=== PATIENT | female | born 1985 | race Caucasian/White ===

== ENCOUNTER 2016-10-21 15:02 | Emergency (ER) | payer OTHER ==
[2016-10-21] MEDS ORDERED: Dexamethasone 4 MG TAB ONE (16:01)
[2016-10-21] MEDS ORDERED: Benzonatate 100 MG CAP ONE ×2 (16:01→16:02)
[2016-10-21] MEDS ORDERED: Ibuprofen 800 MG TAB ONE (16:01)
== END 2016-10-21 16:36 | disposition home or self-care (01) ==
LOC: MADERS 15:02
DX: J40 Bronchitis, not specified as acute or chronic (principal); H66.91 Otitis media, unspecified, right ear; I10 Essential (primary) hypertension; F32.9 Major depressive disorder, single episode, unspecified; Z79.899 Other long term (current) drug therapy
CPT/HCPCS: 99283; J8540

== ENCOUNTER 2016-12-03 10:05 | Emergency (ER) | payer OTHER ==
[2016-12-03] MEDS ORDERED: Naproxen 500 MG TAB ONE (11:06)
[2016-12-03] MEDS ORDERED: AMOXicillin 250 MG CAP ONE (11:06)
[2016-12-03] MEDS ORDERED: Benzonatate 100 MG CAP ONE (11:06)
== END 2016-12-03 11:10 | disposition home or self-care (01) ==
LOC: MADERS 10:05
DX: J03.90 Acute tonsillitis, unspecified (principal); I10 Essential (primary) hypertension; F32.9 Major depressive disorder, single episode, unspecified; Z79.899 Other long term (current) drug therapy
CPT/HCPCS: 99283

== ENCOUNTER 2016-12-06 08:38 | Emergency (ER) | payer OTHER ==
[2016-12-06] MEDS ORDERED: Ibuprofen 400 MG TAB ONE (09:14)
--- NOTE | 2016-12-06 09:30 | RAD ---
PA AND LATERAL VIEWS OF CHEST: Date: 12/06/16 HISTORY: Cough. FINDINGS: Comparison made with exam of 06/08/16. The heart size is normal. No confluent areas of consolidation, pneumothorax, or pleural effusions ar e seen. IMPRESSION: No radiographic evidence of acute cardiopulmonary process. POS: [facility]
== END 2016-12-06 10:21 | disposition home or self-care (01) ==
LOC: MADERS 08:38
DX: J11.1 Influenza due to unidentified influenza virus with other respiratory manifestations (principal); I10 Essential (primary) hypertension; F32.9 Major depressive disorder, single episode, unspecified
CPT/HCPCS: 71020; J7620

== ENCOUNTER 2016-12-17 09:12 | Emergency (ER) | payer OTHER ==
[2016-12-17] MEDS ORDERED: Ciprofloxacin 500 MG TAB ONE (09:49)
[2016-12-17] MEDS ORDERED: Dexamethasone 4 MG TAB ONE (09:49)
== END 2016-12-17 10:20 | disposition home or self-care (01) ==
LOC: MADERS 09:12
DX: J20.9 Acute bronchitis, unspecified (principal); I10 Essential (primary) hypertension; F32.9 Major depressive disorder, single episode, unspecified; Z79.899 Other long term (current) drug therapy
CPT/HCPCS: 93005; J8540

== ENCOUNTER 2017-02-01 08:43 | Emergency (ER) | payer OTHER ==
[2017-02-01] MEDS ORDERED: Ibuprofen 600 MG TAB ONE (09:20)
[2017-02-01 09:24] LABS: Pregnancy Test - Urine (BHCG) Negative (Negative); Pregu Control Background? CLEAR/WHITE (CLR/WHITE); Pregu Control Bar Appear? YES (CONTROL BAR); Specific Gravity 1.027 (1.002-1.036)
[2017-02-01 09:25] LABS: Clarity Hazy (Clear); Glucose, Urine (Dipstick) Negative (Negative); Leukocyte Small (Negative); Nitrite Negative (Negative); Protein, Urine (Dipstick) Trace mg/dL (Neg-Trace); pH, Urine 5.5 (5.0-9.0)
[2017-02-01 09:26] LABS: Bilirubin Small (Negative); Blood, Urine Trace (Negative); Icto Negative (Negative)
[2017-02-01 09:28] LABS: Bacteria/HPF 1+ HPF (None Seen); RBC/HPF 0-3 HPF (0-3); Specific Gravity, Urine 1.027 (1.005-1.030)
[2017-02-01] MEDS ORDERED: Ciprofloxacin 500 MG TAB ONE (09:50)
== END 2017-02-01 09:50 | disposition home or self-care (01) ==
LOC: MADERS 08:43
DX: N39.0 Urinary tract infection, site not specified (principal); I10 Essential (primary) hypertension; F32.9 Major depressive disorder, single episode, unspecified; Z79.899 Other long term (current) drug therapy
CPT/HCPCS: 81003; 81015; 81025; 99284

== ENCOUNTER 2017-03-21 18:36 | Emergency (ER) | payer OTHER | END 2017-03-21 19:04 | disposition home or self-care (01) | LOC: MADERS 18:36 | DX: J20.9 Acute bronchitis, unspecified (principal); I10 Essential (primary) hypertension; F32.9 Major depressive disorder, single episode, unspecified; Z79.899 Other long term (current) drug therapy | CPT/HCPCS: 99283 ==

== ENCOUNTER 2017-06-08 15:18 | Emergency (ER) | payer MEDICAID, OTHER | END 2017-06-08 15:45 | disposition home or self-care (01) | LOC: MADERS 15:18 | DX: J20.9 Acute bronchitis, unspecified (principal); I10 Essential (primary) hypertension; G43.909 Migraine, unspecified, not intractable, without status migrainosus; F32.9 Major depressive disorder, single episode, unspecified; Z79.899 Other long term (current) drug therapy | CPT/HCPCS: 99283 ==

== ENCOUNTER 2017-09-17 16:46 | Emergency (ER) | payer OTHER ==
[2017-09-17] MEDS ORDERED: Benzonatate 100 MG CAP ONE (17:36)
[2017-09-17] MEDS ORDERED: AMOXicillin 250 MG CAP ONE (17:36)
[2017-09-17] MEDS ORDERED: Naproxen 500 MG TAB ONE (17:36)
== END 2017-09-17 17:40 | disposition home or self-care (01) ==
LOC: MADERS 16:46
DX: J20.9 Acute bronchitis, unspecified (principal); I10 Essential (primary) hypertension; F32.9 Major depressive disorder, single episode, unspecified; Z79.899 Other long term (current) drug therapy
CPT/HCPCS: 99283

== ENCOUNTER 2018-04-14 16:20 | Emergency (ER) | payer OTHER ==
--- NOTE | 2018-04-14 17:11 | RAD ---
CHEST TWO VIEWS: 04/14/18 HISTORY: Cough. COMPARISON: 12/06/16. FINDINGS: The cardiac silhouette is unremarkable. Pulmonary vasculature is slightly engorged and accentuated by shallow inspiration. Mediastinum is midline. No confluent air space consolidation, pneumothorax, or pleural fluid are apparent. IMPRESSION: Pulmonary vascular congestion. POS: [facility]
== END 2018-04-14 17:12 | disposition home or self-care (01) ==
LOC: MADERS 16:20
DX: J20.8 Acute bronchitis due to other specified organisms (principal); K21.9 Gastro-esophageal reflux disease without esophagitis; I10 Essential (primary) hypertension; G43.909 Migraine, unspecified, not intractable, without status migrainosus; F31.9 Bipolar disorder, unspecified; F41.9 Anxiety disorder, unspecified; Z79.899 Other long term (current) drug therapy
CPT/HCPCS: 71046; 93005

== ENCOUNTER 2018-07-31 15:34 | Emergency (ER) | payer OTHER ==
--- NOTE | 2018-07-31 16:56 | RAD ---
CHEST TWO VIEWS: HISTORY: Cough. COMPARISON: 04/14/2018 FINDINGS: Two views of the chest show normal sized cardiomediastinal silhouette. There is no evidence of consol idation, mass, or pleural effusion. The bones are unremarkable. IMPRESSION: No evidence of acute cardiopulmonary disease. POS: [facility]
[2018-07-31] MEDS ORDERED: predniSONE 20 MG TAB ONE (17:50)
== END 2018-07-31 18:15 | disposition home or self-care (01) ==
LOC: MADERS 15:34
DX: J06.9 Acute upper respiratory infection, unspecified (principal); F41.9 Anxiety disorder, unspecified; F32.9 Major depressive disorder, single episode, unspecified; K21.9 Gastro-esophageal reflux disease without esophagitis; I10 Essential (primary) hypertension; G43.909 Migraine, unspecified, not intractable, without status migrainosus; Z79.899 Other long term (current) drug therapy
CPT/HCPCS: 71046; 87804; J7506

== ENCOUNTER 2019-02-14 16:34 | Emergency (ER) | payer OTHER ==
--- NOTE | 2019-02-14 17:26 | RAD ---
PA AND LATERAL VIEWS CHEST: Date: 02/14/19 HISTORY: Cough, chest pain. FINDINGS: Comparison made with exam of 07/31/18. The heart size is normal. There is a mild infiltrate in the right middle lobe. No pneumothoraces or p leural effusions are seen. IMPRESSION: Findings are suspicious for pneumonia. POS: [facility]
[2019-02-14] MEDS ORDERED: Azithromycin 250 MG TAB ONE (18:14)
== END 2019-02-14 18:24 | disposition home or self-care (01) ==
LOC: MADERS 16:34
DX: J18.9 Pneumonia, unspecified organism (principal); J20.9 Acute bronchitis, unspecified; I10 Essential (primary) hypertension; G43.909 Migraine, unspecified, not intractable, without status migrainosus; F41.9 Anxiety disorder, unspecified; K21.9 Gastro-esophageal reflux disease without esophagitis; F31.9 Bipolar disorder, unspecified; Z79.899 Other long term (current) drug therapy
CPT/HCPCS: 71046; 93005

== ENCOUNTER 2019-02-18 08:26 | Emergency (ER) | payer OTHER ==
--- NOTE | 2019-02-18 09:31 | RAD ---
2 views of the chest: 02/18/2019 COMPARISON: 02/14/2019 HISTORY: Cough FINDINGS: No pneumothorax or pleural fluid. No focal consolidation or alveolar edema. Heart and media stinal contours are grossly unremarkable. Inspiration is shallow. IMPRESSION: No acute findings.
[2019-02-18 09:53] LABS: #Eosinphils 0.2 thou/uL (0.0-0.7); #Lymphocytes 1.4 thou/uL (1.20-3.40); #Monocytes 0.6 thou/uL (0.11-0.59); #Neutrophils 5.6 thou/uL (1.40-6.50); %Basophils 0.4 % (0.0-1.0); %Lymphocytes 18.1 % (21.0-51.0); %Monocytes 7.5 % (0.0-10.0); %Neutrophils 70.9 % (42.0-75.0); Hemoglobin 13.9 g/dL (12.0-16.0); Mean Corpuscular HGB CONC 31.3 g/dL (32.0-36.0); Mean Corpuscular Hemoglobin 27.8 pg (27.0-31.0); Mean Corpuscular Volume 88.8 fL (78.0-98.0); Mean Platelet Volume 6.9 fL (7.4-10.4); Platelet Count 291 thou/uL (130-400); Red Blood Cell (RBC) Count 5.01 mill/uL (4.20-5.40); White Blood Cell (WBC) Count 7.9 thou/uL (4.8-10.8)
[2019-02-18 10:17] LABS: ALT (SGPT) 16 U/L (8-55); AST (SGOT) 14 U/L (5-34); Albumin 4.1 g/dL (3.5-5.0); Alkaline Phosphatase 79 U/L (40-150); Anion Gap 13 mmol/L (10-20); BUN (Urea Nitrogen) 18 mg/dL (7.0-18.7); Bilirubin, Total 0.4 mg/dL (0.2-1.2); Calc. Creatinine Clearance 0 mL/min (70-130); Calcium 8.8 mg/dL (7.8-10.44); Carbon Dioxide 21 mmol/L (22-29); Chloride 111 mmol/L (98-107); Estimated GFR-MDRD Greater than 90; Globulin 3.3 g/dL (2.4-3.5); Glucose 100 mg/dL (70-105); Potassium 3.9 mmol/L (3.5-5.1); Protein, Total 7.4 g/dL (6.0-8.3); Sodium 141 mmol/L (136-145)
== END 2019-02-18 10:41 | disposition home or self-care (01) ==
LOC: MADERS 08:26
DX: R09.1 Pleurisy (principal); I10 Essential (primary) hypertension; G43.909 Migraine, unspecified, not intractable, without status migrainosus; K21.9 Gastro-esophageal reflux disease without esophagitis; F41.9 Anxiety disorder, unspecified; F31.9 Bipolar disorder, unspecified; Z79.899 Other long term (current) drug therapy
CPT/HCPCS: 71046; 80053; 83605; 85025

== ENCOUNTER 2019-03-13 14:54 | Emergency (ER) | payer OTHER ==
--- NOTE | 2019-03-13 16:38 | RAD ---
2 VIEW CHEST: Date: 03/13/19 INDICATION: Cough. COMPARISON: 02/18/19. FINDINGS: Lungs appear well aerated and clear. No infiltrate or effusion identified. Heart and mediastinum unre markable. No evidence of interval change. IMPRESSION: No acute process identified. POS: [facility]
== END 2019-03-13 16:00 | disposition home or self-care (01) ==
LOC: MADERS 14:54
DX: J20.8 Acute bronchitis due to other specified organisms (principal); K21.9 Gastro-esophageal reflux disease without esophagitis; F41.9 Anxiety disorder, unspecified; F31.9 Bipolar disorder, unspecified; Z79.899 Other long term (current) drug therapy
CPT/HCPCS: 71046

== ENCOUNTER 2019-04-15 18:38 | Emergency (ER) | payer OTHER ==
--- NOTE | 2019-04-15 19:37 | RAD ---
RADIOGRAPH CHEST 1 VIEW: DATE: 04/15/2019 HISTORY: 34-year-old female with chest pain FINDINGS: There are no airspace densities, pulmonary edema, pneumothorax, or cardiomegaly. The lateral costophr enic angles are sharp. IMPRESSION: No acute cardiopulmonary findings.
[2019-04-15 19:43] LABS: #Basophils 0.1 thou/uL (0.0-0.2); #Eosinphils 0.3 thou/uL (0.0-0.7); #Lymphocytes 1.7 thou/uL (1.20-3.40); #Monocytes 0.7 thou/uL (0.11-0.59); #Neutrophils 5.2 thou/uL (1.40-6.50); %Basophils 0.7 % (0.0-1.0); %Eosinophils 3.4 % (0.0-10.0); %Lymphocytes 21.7 % (21.0-51.0); %Monocytes 8.6 % (0.0-10.0); %Neutrophils 65.6 % (42.0-75.0); Hemoglobin 13.5 g/dL (12.0-16.0); Mean Corpuscular Hemoglobin 27.3 pg (27.0-31.0); Mean Corpuscular Volume 85.5 fL (78.0-98.0); Mean Platelet Volume 6.4 fL (7.4-10.4); Platelet Count 298 thou/uL (130-400); RBC Distribution Width 11.9 % (11.5-14.5); Red Blood Cell (RBC) Count 4.95 mill/uL (4.20-5.40); White Blood Cell (WBC) Count 7.9 thou/uL (4.8-10.8)
[2019-04-15 20:01] LABS: ALT (SGPT) 38 U/L (8-55); AST (SGOT) 30 U/L (5-34); Albumin 4.1 g/dL (3.5-5.0); Alkaline Phosphatase 73 U/L (40-150); Anion Gap 16 mmol/L (10-20); BUN (Urea Nitrogen) 19 mg/dL (7.0-18.7); Bilirubin, Total 0.3 mg/dL (0.2-1.2); Calc. Creatinine Clearance 0 mL/min (70-130); Calcium 9.1 mg/dL (7.8-10.44); Carbon Dioxide 19 mmol/L (22-29); Chloride 109 mmol/L (98-107); Estimated GFR-MDRD 88; Globulin 3.3 g/dL (2.4-3.5); Glucose 84 mg/dL (70-105); Potassium 3.8 mmol/L (3.5-5.1); Protein, Total 7.4 g/dL (6.0-8.3); Sodium 140 mmol/L (136-145)
[2019-04-15] MEDS ORDERED: predniSONE 20 MG TAB ONE (20:16)
== END 2019-04-15 20:19 | disposition home or self-care (01) ==
LOC: MADERS 18:38
DX: S29.011A Strain of muscle and tendon of front wall of thorax, initial encounter (principal); I10 Essential (primary) hypertension; G43.909 Migraine, unspecified, not intractable, without status migrainosus; K21.9 Gastro-esophageal reflux disease without esophagitis; F31.9 Bipolar disorder, unspecified; F41.9 Anxiety disorder, unspecified; F32.9 Major depressive disorder, single episode, unspecified; Z79.899 Other long term (current) drug therapy; X50.9XXA Other and unspecified overexertion or strenuous movements or postures, initial encounter
CPT/HCPCS: 36415; 71045; 80053; 83880; 84484; 85025; J7512

== ENCOUNTER 2019-05-21 18:13 | Emergency (ER) | payer OTHER | END 2019-05-21 19:24 | disposition home or self-care (01) | LOC: MADERS 18:13 | DX: B34.9 Viral infection, unspecified (principal); I10 Essential (primary) hypertension; G43.909 Migraine, unspecified, not intractable, without status migrainosus; K21.9 Gastro-esophageal reflux disease without esophagitis; F41.9 Anxiety disorder, unspecified; F31.9 Bipolar disorder, unspecified; Z79.899 Other long term (current) drug therapy | CPT/HCPCS: 87081; 87430; 87804; 99283 ==

== ENCOUNTER 2019-07-02 13:46 | Emergency (ER) | payer OTHER ==
[2019-07-02] MEDS ORDERED: Ondansetron ODT 4 MG TAB ONE (14:04)
== END 2019-07-02 14:25 | disposition home or self-care (01) ==
LOC: MADERS 13:46
DX: J11.1 Influenza due to unidentified influenza virus with other respiratory manifestations (principal); K21.9 Gastro-esophageal reflux disease without esophagitis; I10 Essential (primary) hypertension; F41.9 Anxiety disorder, unspecified; F31.9 Bipolar disorder, unspecified; Z79.899 Other long term (current) drug therapy
CPT/HCPCS: 99283; Q0162

== ENCOUNTER 2019-08-30 15:15 | Emergency (ER) | payer OTHER ==
[2019-08-30] MEDS ORDERED: Triple Antibiotic Oint 1 GM Packet ONE (16:19)
== END 2019-08-30 16:22 | disposition home or self-care (01) ==
LOC: MADERS 15:15
DX: S50.812A Abrasion of left forearm, initial encounter (principal); S50.811A Abrasion of right forearm, initial encounter; K21.9 Gastro-esophageal reflux disease without esophagitis; I10 Essential (primary) hypertension; G43.909 Migraine, unspecified, not intractable, without status migrainosus; F41.9 Anxiety disorder, unspecified; F31.9 Bipolar disorder, unspecified; Z79.899 Other long term (current) drug therapy; V43.52XA Car driver injured in collision with other type car in traffic accident, initial encounter
CPT/HCPCS: 99284

== ENCOUNTER 2019-12-30 18:55 | Emergency (ER) | payer OTHER ==
[2019-12-30 19:20] LABS: Bilirubin Negative (Negative); Blood, Urine Negative (Negative); Glucose, Urine (Dipstick) Negative (Negative); Leukocyte Small (Negative); Nitrite Negative (Negative); Protein, Urine (Dipstick) Negative (Neg-Trace); Urobilinogen 0.2 mg/dL (Less than 2)
[2019-12-30 19:21] LABS: Clarity Cloudy (Clear)
[2019-12-30 19:25] LABS: Bacteria/HPF Rare-Few HPF (None Seen); Mucous/LPF 1+ LPF (<2+); RBC/HPF 0-3 HPF (0-3); WBC/HPF 21-50 HPF (0-3)
[2019-12-30] MEDS ORDERED: Ciprofloxacin 500 MG TAB ONE (19:26)
== END 2019-12-30 19:53 | disposition home or self-care (01) ==
LOC: MADERS 18:55
DX: N39.0 Urinary tract infection, site not specified (principal); K21.9 Gastro-esophageal reflux disease without esophagitis; I10 Essential (primary) hypertension; F41.9 Anxiety disorder, unspecified; F31.9 Bipolar disorder, unspecified
CPT/HCPCS: 81003; 81015; 99283

== ENCOUNTER 2020-06-29 12:06 | Emergency (ER) | payer OTHER ==
--- NOTE | 2020-06-29 12:53 | RAD ---
RADIOGRAPH CHEST 1 VIEW: DATE: 06/29/2020 HISTORY: 35-year-old female with chest pain FINDINGS: There are no airspace densities, pulmonary edema, pneumothorax, or cardiomegaly. The lateral costophr enic angles are sharp. IMPRESSION: No acute cardiopulmonary findings.
[2020-06-29] MEDS ORDERED: Albuterol 200 PUFF (6.7GM INHALER) ONE (13:18)
[2020-06-30 07:27] LABS: SARS-CoV-2 MS2 Positive; SARS-CoV-2 N Gene Negative; SARS-CoV-2 S Gene Negative; SARS-CoV-2 by NAA Not Detected (NotDetected); SARS-CoV-2 orf1ab Negative
== END 2020-06-29 14:11 | disposition home or self-care (01) ==
LOC: MADERS 12:06
DX: J06.9 Acute upper respiratory infection, unspecified (principal); Z20.828 Contact with and (suspected) exposure to other viral communicable diseases; K21.9 Gastro-esophageal reflux disease without esophagitis; I10 Essential (primary) hypertension; F41.9 Anxiety disorder, unspecified; F31.9 Bipolar disorder, unspecified; Z79.899 Other long term (current) drug therapy
CPT/HCPCS: 71045; 87635; 93005; U0003

== ENCOUNTER 2020-11-01 14:05 | Emergency (ER) | payer OTHER ==
[2020-11-01 17:03] LABS: #Basophils 0.2 thou/uL (0.0-0.2); #Eosinphils 0.2 thou/uL (0.0-0.7); #Monocytes 0.6 thou/uL (0.11-0.59); #Neutrophils 5.9 thou/uL (1.40-6.50); %Eosinophils 2.6 % (0.0-10.0); %Lymphocytes 22.3 % (21.0-51.0); %Monocytes 7.1 % (0.0-10.0); %Neutrophils 66.1 % (42.0-75.0); Hemoglobin 15.1 g/dL (12.0-16.0); Mean Corpuscular HGB CONC 31.7 g/dL (32.0-36.0); Mean Corpuscular Volume 88.2 fL (78.0-98.0); Mean Platelet Volume 7.6 fL (7.4-10.4); Platelet Count 355 thou/uL (130-400)
[2020-11-01 17:21] LABS: ALT (SGPT) 18 U/L (8-55); AST (SGOT) 12 U/L (5-34); Alkaline Phosphatase 70 U/L (40-110); Anion Gap 14 mmol/L (10-20); BUN (Urea Nitrogen) 14 mg/dL (7.0-18.7); Bilirubin, Total 0.2 mg/dL (0.2-1.2); Calc. Creatinine Clearance 0 mL/min (70-130); Carbon Dioxide 21 mmol/L (22-29); Chloride 110 mmol/L (98-107); Globulin 3.1 g/dL (2.4-3.5); Glucose 91 mg/dL (70-105); Potassium 4.1 mmol/L (3.5-5.1); Protein, Total 7.1 g/dL (6.0-8.3); Sodium 141 mmol/L (136-145)
== END 2020-11-01 18:35 | disposition home or self-care (01) ==
LOC: MADERS 14:05
DX: F41.9 Anxiety disorder, unspecified (principal); R07.9 Chest pain, unspecified; E66.9 Obesity, unspecified; K21.9 Gastro-esophageal reflux disease without esophagitis; I10 Essential (primary) hypertension; G43.909 Migraine, unspecified, not intractable, without status migrainosus; Z79.899 Other long term (current) drug therapy
CPT/HCPCS: 80053; 84484; 85025; 93005; 94760

== ENCOUNTER 2021-01-18 17:58 | Emergency (ER) | payer OTHER | END 2021-01-18 18:45 | disposition home or self-care (01) | LOC: MADERS 17:58 | DX: M54.16 Radiculopathy, lumbar region (principal); E66.9 Obesity, unspecified; K21.9 Gastro-esophageal reflux disease without esophagitis; I10 Essential (primary) hypertension; G43.909 Migraine, unspecified, not intractable, without status migrainosus; Z79.899 Other long term (current) drug therapy | CPT/HCPCS: 99283 ==

== ENCOUNTER 2021-01-29 16:07 | Emergency (ER) | payer OTHER ==
[2021-01-29] MEDS ORDERED: methylPREDNISolone Sod Succ/PF 125 MG/2 ML VIAL ONE (16:37)
== END 2021-01-29 16:51 | disposition home or self-care (01) ==
LOC: MADERS 16:07
DX: M54.10 Radiculopathy, site unspecified (principal); K21.9 Gastro-esophageal reflux disease without esophagitis; I10 Essential (primary) hypertension; E66.9 Obesity, unspecified; Z79.899 Other long term (current) drug therapy
CPT/HCPCS: 96372; 99283; J2930

== ENCOUNTER 2021-03-06 20:41 | Emergency (ER) | payer OTHER | END 2021-03-06 22:36 | disposition home or self-care (01) | LOC: MADERS 20:41 | DX: S52.501A Unspecified fracture of the lower end of right radius, initial encounter for closed fracture (principal); K21.9 Gastro-esophageal reflux disease without esophagitis; I10 Essential (primary) hypertension; E66.9 Obesity, unspecified; G43.909 Migraine, unspecified, not intractable, without status migrainosus; G91.9 Hydrocephalus, unspecified; V86.69XA Passenger of other special all-terrain or other off-road motor vehicle injured in nontraffic accident, initial encounter | CPT/HCPCS: 25605 ==

== ENCOUNTER 2021-09-10 08:22 | Emergency (ER) | payer OTHER ==
[2021-09-10] MEDS ORDERED: Albuterol 200 PUFF (6.7GM INHALER) ONE (08:51)
[2021-09-10] MEDS ORDERED: predniSONE 20 MG TAB ONE (08:52)
[2021-09-11 00:12] LABS: SARS-CoV-2 PCR by NAA Not Detected (NotDetected)
== END 2021-09-10 10:35 | disposition home or self-care (01) ==
LOC: MADERS 08:22
DX: J06.9 Acute upper respiratory infection, unspecified (principal); J45.901 Unspecified asthma with (acute) exacerbation; H92.03 Otalgia, bilateral; R94.31 Abnormal electrocardiogram [ECG] [EKG]; I10 Essential (primary) hypertension; K21.9 Gastro-esophageal reflux disease without esophagitis; Q04.6 Congenital cerebral cysts; E66.9 Obesity, unspecified; Z20.822 Contact with and (suspected) exposure to COVID-19; Z68.45 Body mass index [BMI] 70 or greater, adult; Z79.899 Other long term (current) drug therapy
CPT/HCPCS: 71046; 87804; 93005; J7512; U0003; U0005

== ENCOUNTER 2022-05-15 15:48 | Emergency (ER) | payer OTHER ==
[2022-05-15] MEDS ORDERED: predniSONE 20 MG TAB ONE (16:31)
== END 2022-05-15 17:24 | disposition home or self-care (01) ==
LOC: MADERS 15:48
DX: U07.1 COVID-19 (principal); J02.9 Acute pharyngitis, unspecified; J20.9 Acute bronchitis, unspecified; K21.9 Gastro-esophageal reflux disease without esophagitis; I10 Essential (primary) hypertension; Z79.899 Other long term (current) drug therapy
CPT/HCPCS: 87804; 99283; J7512; U0003; U0005

== ENCOUNTER 2023-03-07 02:38 | Emergency (ER) | payer OTHER ==
[2023-03-07 03:44] LABS: Bacteria/HPF 2+ HPF (None Seen); Bilirubin Small (Negative); Blood, Urine Moderate (Negative); CAUTI Indications for Culture Pregnancy; Clarity Cloudy (Clear); Glucose, Urine (Dipstick) Negative (Negative); Ketone, Urine Negative (Negative); Leukocyte Small (Negative); Nitrite Negative (Negative); Protein, Urine (Dipstick) 30 mg/dL (Neg-Trace); RBC/HPF Greater than 50 HPF (0-3); Specific Gravity, Urine 1.026 (1.002-1.036); pH, Urine 5.5 (5.0-9.0)
[2023-03-07 03:46] LABS: Urine Culture Reflex Yes Yes
[2023-03-07] MEDS ORDERED: Cephalexin 500 MG CAP ONE (04:18)
== END 2023-03-07 05:17 | disposition home or self-care (01) ==
LOC: MADERS 02:38
DX: O20.0 Threatened abortion (principal); O99.891 Other specified diseases and conditions complicating pregnancy; R82.71 Bacteriuria; O99.611 Diseases of the digestive system complicating pregnancy, first trimester; K21.9 Gastro-esophageal reflux disease without esophagitis; O10.911 Unspecified pre-existing hypertension complicating pregnancy, first trimester; O99.211 Obesity complicating pregnancy, first trimester; Z3A.01 Less than 8 weeks gestation of pregnancy
CPT/HCPCS: 36415; 81001; 84702; 86850; 86900; 86901; 87086; 90384; 96372; 99284

== ENCOUNTER 2023-07-05 16:22 | Emergency (ER) | payer OTHER ==
[2023-07-05] MEDS ORDERED: Aspirin 325 MG TAB ONE (16:55)
[2023-07-05] MEDS ORDERED: Sodium Chloride 0.9% 1,000 ML ONE ×2 (16:55→17:24)
[2023-07-05] MEDS ORDERED: Ondansetron PF 4 MG/2 ML Vial ONE (16:55)
[2023-07-05 17:20] LABS: Bilirubin Small (Negative); Blood, Urine Trace (Negative); Clarity Clear (Clear); Glucose, Urine (Dipstick) Negative (Negative); Ketone, Urine Trace mg/dL (Negative); Leukocyte Small (Negative); Nitrite Negative (Negative); Protein, Urine (Dipstick) Trace mg/dL (Neg-Trace); Specific Gravity, Urine 1.025 (1.005-1.030)
[2023-07-05] MEDS ORDERED: Piperacillin/Tazobactam 4.5 GM VIAL ONE (17:23)
[2023-07-05] MEDS ORDERED: Sodium Chloride 0.9% 100 ML ONE (17:23)
[2023-07-05] MEDS ORDERED: Acetaminophen 500 MG TAB ONE (17:23)
[2023-07-05 17:27] LABS: #Basophils 0.1 thou/uL (0.0-0.2); #Eosinphils 0.1 thou/uL (0.0-0.7); #Lymphocytes 0.7 thou/uL (1.20-3.40); #Monocytes 0.6 thou/uL (0.11-0.59); %Basophils 1.9 % (0.0-1.0); %Eosinophils 1.4 % (0.0-10.0); %Lymphocytes 9.1 % (21.0-51.0); %Monocytes 7.8 % (0.0-10.0); %Neutrophils 79.8 % (42.0-75.0); Hematocrit 41.9 % (36.0-47.0); Hemoglobin 13.3 g/dL (12.0-16.0); Mean Corpuscular HGB CONC 31.8 g/dL (32.0-36.0); Mean Corpuscular Hemoglobin 28.7 pg (27.0-31.0); Mean Corpuscular Volume 90.4 fl (78.0-98.0); Mean Platelet Volume 8.1 fL (7.4-10.4); Platelet Count 230 10x3/uL (130-400); RBC Distribution Width 13.3 % (11.5-14.5); Red Blood Cell (RBC) Count 4.64 mill/uL (4.20-5.40); White Blood Cell (WBC) Count 7.5 10x3/uL (4.8-10.8)
[2023-07-05 17:31] LABS: BHCG - Serum Negative (NEGATIVE); Pregs Control Background? CLEAR/WHITE (CLR/WHITE); Pregs Control Bar Appear? YES (CONTROL BAR)
[2023-07-05 17:34] LABS: Bacteria/HPF Rare-Few HPF (None Seen); CAUTI Indications for Culture Dysuria,urgency,freq; Mucous/LPF 2+ LPF (<2+); Urine Culture Reflex Yes Yes
[2023-07-05 17:40] LABS: Acetaminophen Less than 10 mcg/mL (10.0-30.0); Alcohol Less than 10.0 mg/dL (Less than 10); Lipase 15 U/L (8-78); Magnesium 1.6 mg/dL (1.6-2.6); Salicylate Less than 8.0 mg/dL (15.0-30.0)
[2023-07-05 17:41] LABS: Anion Gap 15 mmol/L (10-20); BUN (Urea Nitrogen) 8 mg/dL (7.0-18.7); Calc. Creatinine Clearance 0 mL/min (70-130); Calcium 8.6 mg/dL (7.8-10.44); Carbon Dioxide 25 mmol/L (22-29); Chloride 102 mmol/L (98-107); Estimated GFR 116; Glucose 90 mg/dL (70-105); Sodium 138 mmol/L (136-145); Troponin I Less than 0.010 ng/mL (< 0.028)
== END 2023-07-05 19:49 | disposition home or self-care (01) ==
LOC: MADERS 16:22
DX: N39.0 Urinary tract infection, site not specified (principal); R50.9 Fever, unspecified; I10 Essential (primary) hypertension; K21.9 Gastro-esophageal reflux disease without esophagitis; Z79.899 Other long term (current) drug therapy
CPT/HCPCS: 36415; 71045; 71275; 74018; 74177; 80048; 80307; 81001; 83605; 83690; 83735; 83880; 84484; 84703; 85025; 85379; 87040; 87077; 87086; 93005; 96361; 96365; 96375; J2405; J2543; J3490; J7050

== ENCOUNTER 2023-07-28 16:14 | Emergency (ER) | payer OTHER ==
[2023-07-28] MEDS ORDERED: Dexamethasone 4 mg/ml Vial ONE (17:06)
[2023-07-28] MEDS ORDERED: Ketorolac Tromethamine 30 MG/ML VIAL ONE (17:06)
== END 2023-07-28 17:34 | disposition home or self-care (01) ==
LOC: MADERS 16:14
DX: M54.16 Radiculopathy, lumbar region (principal); M54.40 Lumbago with sciatica, unspecified side; I10 Essential (primary) hypertension; E66.9 Obesity, unspecified; K21.9 Gastro-esophageal reflux disease without esophagitis; Z79.899 Other long term (current) drug therapy
CPT/HCPCS: 96372; 99283; J1100; J1885

== ENCOUNTER 2023-09-13 15:57 | Emergency (ER) | payer OTHER ==
[2023-09-13 16:27] LABS: Pregnancy Test - Urine (BHCG) Negative (Negative); Pregu Control Background? CLEAR/WHITE (CLR/WHITE); Pregu Control Bar Appear? YES (CONTROL BAR); Specific Gravity 1.025 (1.002-1.036)
[2023-09-13 16:28] LABS: Bilirubin Negative (Negative); Blood, Urine Trace (Negative); Clarity Cloudy (Clear); Glucose, Urine (Dipstick) Negative (Negative); Ketone, Urine Trace mg/dL (Negative); Leukocyte Small (Negative); Nitrite Positive (Negative); Protein, Urine (Dipstick) Negative (Neg-Trace); Specific Gravity, Urine 1.025 (1.005-1.030); pH, Urine 5.5 (5.0-9.0)
[2023-09-13 16:31] LABS: Bacteria/HPF 2+ HPF (None Seen); CAUTI Indications for Culture Dysuria,urgency,freq; RBC/HPF 0-3 HPF (0-3); WBC/HPF 21-50 HPF (0-3)
[2023-09-13 16:32] LABS: Urine Culture Reflex Yes Yes
[2023-09-13] MEDS ORDERED: Acetaminophen 500 MG TAB ONE (16:36)
[2023-09-13] MEDS ORDERED: cefTRIAXone (ROCEPHIN) 2 GM VIAL ONE (17:23)
[2023-09-13] MEDS ORDERED: Sodium Chloride 0.9% 100 ML ONE (17:23)
[2023-09-13] MEDS ORDERED: Sodium Chloride 0.9% 1,000 ML ONE (17:23)
[2023-09-13] MEDS ORDERED: Ketorolac Tromethamine 30 MG (1 mL) VIAL ONE (17:23)
[2023-09-13 17:51] LABS: Hematocrit 45.4 % (36.0-47.0); Hemoglobin 14.2 g/dL (12.0-16.0); Mean Corpuscular HGB CONC 31.3 g/dL (32.0-36.0); Mean Corpuscular Volume 89.5 fl (78.0-98.0); Mean Platelet Volume 7.6 fL (7.4-10.4); Platelet Count 269 10x3/uL (130-400); RBC Distribution Width 13.9 % (11.5-14.5); Red Blood Cell (RBC) Count 5.08 mill/uL (4.20-5.40); White Blood Cell (WBC) Count 10.6 10x3/uL (4.8-10.8)
[2023-09-13 17:52] LABS: Band 2 % (5-11); Eosinophils 2 % (0-10); Lymphocytes 4 % (21-51); MDiff Complete? YES; Manual Diff?? YES; Monocytes 4 % (0-10); Myelocyte 1 % (0-0); Neutrophil 80 % (42-75); Platelet Adequacy Comment Appears Adequate; RBC Morph Comment Within Normal Limits; Reactive Lymphocytes 7 % (0-10)
[2023-09-13 17:55] LABS: ALT (SGPT) 13 U/L (8-55); AST (SGOT) 10 U/L (5-34); Albumin 3.7 g/dL (3.5-5.0); Alkaline Phosphatase 65 U/L (40-110); Anion Gap 11 mmol/L (10-20); BUN (Urea Nitrogen) 8 mg/dL (7.0-18.7); Bilirubin, Total 0.3 mg/dL (0.2-1.2); Calc. Creatinine Clearance 0 mL/min (70-130); Calcium 8.8 mg/dL (7.8-10.44); Carbon Dioxide 24 mmol/L (22-29); Chloride 105 mmol/L (98-107); Estimated GFR 119; Globulin 3.2 g/dL (2.4-3.5); Glucose 114 mg/dL (70-105); Lipase 8 U/L (8-78); Potassium 3.4 mmol/L (3.5-5.1); Protein, Total 6.9 g/dL (6.0-8.3); Sodium 137 mmol/L (136-145)
[2023-09-13] MEDS ORDERED: Potassium Chloride 20 MEQ TAB ONE (18:08)
== END 2023-09-13 18:23 | disposition home or self-care (01) ==
LOC: MADERS 15:57
DX: N39.0 Urinary tract infection, site not specified (principal); J06.9 Acute upper respiratory infection, unspecified; E87.6 Hypokalemia; I10 Essential (primary) hypertension; K21.9 Gastro-esophageal reflux disease without esophagitis
CPT/HCPCS: 36415; 69210; 80053; 81001; 81025; 83605; 83690; 85025; 87040; 87077; 87081; 87086; 87186; 87430; 87635; 87804; 94760; 96365; 96375; J0696; J1885; J3490; J7050

== ENCOUNTER 2023-10-18 13:01 | Emergency (ER) | payer OTHER | END 2023-10-18 14:19 | disposition home or self-care (01) | LOC: MADERS 13:01 | DX: O26.891 Other specified pregnancy related conditions, first trimester (principal); I10 Essential (primary) hypertension; Z79.01 Long term (current) use of anticoagulants | CPT/HCPCS: 36415; 84702; 99284 ==

== ENCOUNTER 2024-01-05 14:02 | Emergency (ER) | payer OTHER ==
[2024-01-05 14:43] LABS: Bilirubin Negative (Negative); Blood, Urine Trace (Negative); Clarity Hazy (Clear); Glucose, Urine (Dipstick) Negative (Negative); Ketone, Urine Negative (Negative); Leukocyte Moderate (Negative); Nitrite Negative (Negative); Protein, Urine (Dipstick) Negative (Neg-Trace)
[2024-01-05 14:51] LABS: Bacteria/HPF Rare-Few HPF (None Seen); CAUTI Indications for Culture Dysuria,urgency,freq; RBC/HPF 0-3 HPF (0-3); WBC/HPF 21-50 HPF (0-3)
[2024-01-05 14:52] LABS: Urine Culture Reflex Yes Yes
[2024-01-05] MEDS ORDERED: Benzonatate 100 MG CAP ONE (15:49)
[2024-01-05 15:55] LABS: Bilirubin Negative (Negative); Blood, Urine Negative (Negative); Glucose, Urine (Dipstick) Negative (Negative); Ketone, Urine Negative (Negative); Leukocyte Trace (Negative); Nitrite Negative (Negative); Protein, Urine (Dipstick) Negative (Neg-Trace)
[2024-01-05 15:56] LABS: Clarity Hazy (Clear)
[2024-01-05 16:02] LABS: Bacteria/HPF Rare-Few HPF (None Seen); CAUTI Indications for Culture Dysuria,urgency,freq; RBC/HPF None Seen HPF (0-3); Urine Culture Reflex No No
== END 2024-01-05 16:25 | disposition home or self-care (01) ==
LOC: MADERS 14:02
DX: J06.9 Acute upper respiratory infection, unspecified (principal); I10 Essential (primary) hypertension
CPT/HCPCS: 81001; 87077; 87086; 87804; 99283

== ENCOUNTER 2024-03-09 11:55 | Emergency (ER) | payer OTHER | END 2024-03-09 12:12 | disposition home or self-care (01) | LOC: MADERS 11:55 | DX: O26.91 Pregnancy related conditions, unspecified, first trimester (principal); O13.9 Gestational [pregnancy-induced] hypertension without significant proteinuria, unspecified trimester; Z3A.01 Less than 8 weeks gestation of pregnancy | CPT/HCPCS: 36415; 84702; 99282 ==

== ENCOUNTER 2024-05-20 08:29 | Emergency (ER) | payer OTHER ==
[2024-05-20] MEDS ORDERED: Ketorolac Tromethamine 30 MG (1 mL) VIAL ONE (08:40)
== END 2024-05-20 09:35 | disposition home or self-care (01) ==
LOC: MADERS 08:29
DX: M94.0 Chondrocostal junction syndrome [Tietze] (principal); I10 Essential (primary) hypertension
CPT/HCPCS: 71046; 96372; J1885

== ENCOUNTER 2024-06-20 08:14 | Emergency (ER) | payer OTHER ==
[2024-06-20 08:49] LABS: Bilirubin Negative (Negative); Blood, Urine Moderate (Negative); Clarity Hazy (Clear); Glucose, Urine (Dipstick) Negative (Negative); Ketone, Urine Negative (Negative); Leukocyte Large (Negative); Nitrite Negative (Negative); Protein, Urine (Dipstick) Negative (Neg-Trace); Specific Gravity, Urine 1.025 (1.005-1.030)
[2024-06-20 08:50] LABS: Bacteria/HPF 1+ HPF (None Seen); CAUTI Indications for Culture Pelvic or flank pain; WBC/HPF Greater than 50 HPF (0-3)
[2024-06-20 08:51] LABS: Urine Culture Reflex Yes Yes
== END 2024-06-20 09:35 | disposition home or self-care (01) ==
LOC: MADERS 08:14
DX: N39.0 Urinary tract infection, site not specified (principal); J06.9 Acute upper respiratory infection, unspecified; I10 Essential (primary) hypertension
CPT/HCPCS: 81001; 87086; 99283

== ENCOUNTER 2024-09-06 08:58 | Emergency (ER) | payer OTHER ==
[2024-09-06 09:16] LABS: Bilirubin Negative (Negative); Blood, Urine Small (Negative); Clarity Slightly Cloudy (Clear); Glucose, Urine (Dipstick) Negative (Negative); Ketone, Urine Negative (Negative); Leukocyte Moderate (Negative); Nitrite Negative (Negative); Protein, Urine (Dipstick) 30 mg/dL (Neg-Trace); Specific Gravity, Urine 1.025 (1.005-1.030); Urobilinogen 0.2 mg/dL (Less than 2); pH, Urine 5.5 (5.0-9.0)
[2024-09-06 09:29] LABS: Bacteria/HPF 2+ HPF (None Seen); CAUTI Indications for Culture Dysuria,urgency,freq; WBC/HPF Greater than 50 HPF (0-3)
[2024-09-06 09:31] LABS: Pregnancy Test - Urine (BHCG) Negative (Negative); Pregu Control Background? CLEAR/WHITE (CLR/WHITE); Pregu Control Bar Appear? YES (CONTROL BAR); Specific Gravity 1.025 (1.002-1.036); Urine Culture Reflex Yes Yes
== END 2024-09-06 09:55 | disposition home or self-care (01) ==
LOC: MADERS 08:58
DX: N39.0 Urinary tract infection, site not specified (principal); J45.909 Unspecified asthma, uncomplicated; G43.909 Migraine, unspecified, not intractable, without status migrainosus; K21.9 Gastro-esophageal reflux disease without esophagitis; I10 Essential (primary) hypertension; G91.9 Hydrocephalus, unspecified
CPT/HCPCS: 81001; 81025; 87077; 87086; 99284

== ENCOUNTER 2025-06-02 08:07 | Emergency (ER) | payer MEDICAID, OTHER | END 2025-06-02 09:10 | disposition home or self-care (01) | LOC: MADERS 08:07 | DX: J20.9 Acute bronchitis, unspecified (principal); I10 Essential (primary) hypertension; E66.9 Obesity, unspecified | CPT/HCPCS: 71046; 93005 ==

== ENCOUNTER 2025-06-09 13:46 | Emergency (ER) | payer MEDICAID ==
[~2025-06-09 13:46] MED LIST: Iopamidol 370 76% 100 ML VIAL ONE
[2025-06-09] MEDS ORDERED: Ondansetron PF 4 MG/2 ML Vial ONE (14:26)
[2025-06-09 14:30] LABS: Glucose, Urine (Dipstick) Negative (Negative); Leukocyte Small (Negative); Protein, Urine (Dipstick) 100 mg/dL (Neg-Trace); Specific Gravity, Urine 1.025 (1.005-1.030)
[2025-06-09 14:39] LABS: Hematocrit 45.6 % (36.0-47.0); Hemoglobin 14.1 g/dL (12.0-16.0); Mean Corpuscular Hemoglobin 27.9 pg (27.0-31.0); Mean Corpuscular Volume 90.6 fl (78.0-98.0); Platelet Count 299 10x3/uL (130-400); Red Blood Cell (RBC) Count 5.04 mill/uL (4.20-5.40); White Blood Cell (WBC) Count 11.6 10x3/uL (4.8-10.8)
[2025-06-09 14:44] LABS: Bacteria/HPF Rare-Few HPF (None Seen); CAUTI Indications for Culture Pelvic or flank pain; Mucous/LPF 2+ LPF (<2+); RBC/HPF Greater than 50 HPF (0-3); WBC/HPF Greater Than 50 HPF (0-3)
[2025-06-09 14:45] LABS: Urine Culture Reflex Yes Yes
[2025-06-09 14:50] LABS: ALT (SGPT) 43 U/L (Less than 34); AST (SGOT) 38 U/L (11-34); Albumin 3.3 g/dL (3.1-4.5); Alkaline Phosphatase 69 U/L (40-110); Anion Gap 16 mmol/L (10-20); BUN (Urea Nitrogen) 8 mg/dL (7.0-18.7); Bilirubin, Total 0.5 mg/dL (0.3-1.2); Calc. Creatinine Clearance 0 mL/min (70-130); Calcium 8.3 mg/dL (7.8-10.44); Carbon Dioxide 24 mmol/L (22-29); Chloride 103 mmol/L (98-107); Globulin 3.2 g/dL (2.4-3.5); Glucose 127 mg/dL (70-105); Lipase 6 U/L (8-78); Potassium 3.7 mmol/L (3.5-5.1); Sodium 139 mmol/L (136-145)
[2025-06-09 14:53] LABS: MDiff Complete? YES; Manual Diff?? YES; Platelet Adequacy Comment Appears Adequate
[2025-06-09 16:17] LABS: Pregnancy Test - Urine (BHCG) Negative (Negative); Pregu Control Background? CLEAR/WHITE (CLR/WHITE); Pregu Control Bar Appear? YES (CONTROL BAR)
== END 2025-06-09 16:43 | disposition home or self-care (01) ==
LOC: MADERS 13:46
DX: K52.9 Noninfective gastroenteritis and colitis, unspecified (principal); N39.0 Urinary tract infection, site not specified; N83.202 Unspecified ovarian cyst, left side; I10 Essential (primary) hypertension
CPT/HCPCS: 74177; 80053; 81001; 81025; 83690; 85025; 87077; 87086; 87186; 96361; 96374; J2405; J7030; Q9967